=== PATIENT | female | born 1955 | race American Indian/Alaskan Native ===

== ENCOUNTER 2016-05-18 11:12 | Outpatient (CLI) | payer MEDICARE ==
--- NOTE | 2016-05-21 08:56 | Cat Scan Report ---
CT CHEST WITHOUT CONTRAST: HISTORY: Lung cancer screening. TECHNIQUE: Helical CT with sagittal and coronal reformatted images. FINDINGS: No comparison. There are mild to moderate centrilobular and paraseptal emphysematous changes. The lungs are well aerated. No evidence for infiltrate, pleural effusion or pneumothorax. There is no spiculated, suspicious pulmonary mass. There are however a few scattered small pulmonary nodules. An 8 mm well marginated nodule is identified in the lingula on image 108, series 2. A 6 mm well marginated nodule is identified in the lateral left lower lobe on image 148. There are 2 subpleural nodules in the right middle lobe measuring up to 6 mm on image 127. There appears to be moderate sized vessels associated with these right middle lobe nodules. I suspect these represent small pulmonary AVMs. Heart and mediastinal structures are within normal limits given no IV contrast was administered. No bulky mediastinal adenopathy or mass. The thoracic cage is grossly intact. No suspicious bony lesion or fracture. Chronic, ununited fracture of the left posterior seventh rib is noted. There are 3 borderline and enlarged left axillary lymph nodes measuring up to 1.7 x 1.2 cm. The radiology of these are unclear. There is no obvious breast mass on CT. IMPRESSION: Mild to moderate emphysematous changes. Approximately 4 tiny nodules are identified as outlined above. In my opinion these are benign in appearance. 2 of these appear to represent small pulmonary AVMs. These nodules are too small or inaccessible to biopsy under CT guidance. Followup CT chest with contrast is recommended in 3-6 months. Borderline to mildly enlarged left axillary lymph nodes of uncertain significance. These may be reactive in nature.
== END 2016-05-18 11:13 | disposition home or self-care (01) ==
LOC: CT 11:12
PROVIDERS: ATTEND Internal Medicine Critical Care Medicine
DX: Z12.2 Encounter for screening for malignant neoplasm of respiratory organs (principal); I10 Essential (primary) hypertension; E11.9 Type 2 diabetes mellitus without complications; J44.9 Chronic obstructive pulmonary disease, unspecified
CPT/HCPCS: 71250

== ENCOUNTER 2016-06-29 08:41 | Outpatient (CLI) | payer MEDICARE ==
--- NOTE | 2016-06-29 10:27 | Ultrasound Report ---
Bilateral mammogram and right breast ultrasound: Routine imaging as well as a straight lateral compression view right breast were obtained. Comparison is made to numerous prior exams dating back to 2013. On the current study is compared to the most recent prior studies in 2015 and 2016 there is an area of questionable changing asymmetry identified in the inferior right breast. Prior ultrasound in 2016 showed no significant findings. When however I compared the current examination to that in 2013 the areas of asymmetry appear generally the same. It would appear that the asymmetry is change depending on positioning of the breast. The left breast pattern is unchanged from multiple prior studies. Right breast ultrasound currently identifies hyperdense areas of tissue in the 8:00 and 5:00 locations which are not apparent on her prior ultrasound in 2016. The configuration of the areas appear to blend with other linear areas of increased density in the breast and most likely represent fibrosis. These are not shown on the recent ultrasound in 2016 however there current appearance is not suspicious for malignancy. CAD used. Impressions: 1. Generally stable breast pattern bilaterally. 2. Probably benign areas of hyper echogenicity in the right breast. Recommendation: Repeat right breast ultrasound in 6 months. BI-RADS CATEGORY: 3 = Probably benign ACR BI-RADS MAMMOGRAPHIC CODES: 0 = Needs additional imaging evaluation; 1 = Negative; 2 = Benign; 3 = Probably benign; 4 = Suspicious; 5 = Malignant; 6 = Known biopsy-proven malignancy COMMENT: 1. Dense breast tissue, i.e., adenosis, fibrocystic changes, etc., may obscure an underlying neoplasm. 2. Approximately 10% of cancers are not detected with mammography. 3. A negative mammography report should not delay biopsy if a clinically suspicious mass is present.
== END 2016-06-29 08:42 | disposition home or self-care (01) ==
LOC: MAMMO 08:41
PROVIDERS: ATTEND Obstetrics & Gynecology Gynecology
DX: R92.8 Other abnormal and inconclusive findings on diagnostic imaging of breast (principal)
CPT/HCPCS: 76642; G0204; 77066

== ENCOUNTER 2017-05-29 10:29 | Outpatient (CLI) | payer MEDICARE ==
--- NOTE | 2017-05-29 11:15 | XRay Report ---
ROUTINE CHEST, TWO VIEWS: HISTORY: Anterior chest wall pain. The trachea, heart, mediastinal contour, lung dunn and bony thorax are unremarkable. IMPRESSION: Unremarkable chest x-ray.
--- NOTE | 2017-05-29 11:50 | Cat Scan Report ---
CT CHEST WITHOUT CONTRAST: HISTORY: Pulmonary nodule. COMPARISON: 05/18/16. TECHNIQUE: Helical CT in 1.25mm intervals without IV contrast. Sagittal and coronal reformatted images. FINDINGS: Thyroid gland: Normal. Tracheobronchial tree: Normal. Esophagus: Normal. Heart: Normal size. Mild to moderate three-vessel coronary artery calcifications are noted. Pericardium: Normal. Mediastinum: Mild aortic calcifications. No mediastinal mass or adenopathy. Lung Bermudez: There are multiple tiny cysts in the central and peripheral lungs which predominate in the upper lung zones. On the previous exam, this was described as centrilobular and paraseptal emphysematous changes. This may actually represent some type of cystic lung disease. Mild lymphangiomyomatosis or tuberous sclerosis could also be considered. The cystic lesions range from a few millimeters in diameter to 2 cm in diameter. The cysts are well defined with a thin continuous wall. The previously described nodules in the lingula, left lower lobe and right middle lobe are unchanged in size and configuration. The 2 nodules in the right middle lobe remain consistent with small pulmonary AVMs. No new pulmonary nodule or mass is detected. Pleural Spaces: Normal. Musculoskeletal: Normal. IMPRESSION: No change since 05/18/16. Scattered bilateral pulmonary nodules are unchanged in size and number. Cystic lung disease versus emphysema. 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 Please see above correlate with the patient's clinical history.
== END 2017-05-29 10:30 | disposition home or self-care (01) ==
LOC: CT 10:29
PROVIDERS: ATTEND Internal Medicine Critical Care Medicine
DX: J98.4 Other disorders of lung (principal); I25.10 Atherosclerotic heart disease of native coronary artery without angina pectoris; I70.0 Atherosclerosis of aorta; R91.8 Other nonspecific abnormal finding of lung field; R07.89 Other chest pain; Z80.3 Family history of malignant neoplasm of breast
CPT/HCPCS: 71046; 71250

== ENCOUNTER 2017-07-23 08:27 | Outpatient (CLI) | payer MEDICARE ==
--- NOTE | 2017-07-24 12:52 | Mammography Report ---
BILATERAL DIGITAL SCREENING MAMMOGRAM with CAD: 07/23/17 08:27:00 CLINICAL: Routine screening.However, she did not return for a followup right breast ultrasound after her last mammogram. COMPARISON:06/29/16 FINDINGS: The breasts are mostly fatty with a few bilateral retroareolar fibroglandular densities.A previously described right outer asymmetric density is slightly larger on the cc view and correlates with an echogenic mass identified on the last ultrasound at 8 o'clock.No architectural distortion or suspicious calcifications. The left breast is negative with a stable fibroglandular pattern. IMPRESSION: Right asymmetry requiring further workup. BI-RADS CATEGORY: 0 -- Additional Imaging Evaluation Required RECOMMENDATION: Recall for right spot compression views and right breast ultrasound. ACR BI-RADS MAMMOGRAPHIC CODES: 0 = Needs additional imaging evaluation; 1 = Negative; 2 = Benign; 3 = Probably benign; 4 = Suspicious; 5 = Malignant; 6 = Known biopsy-proven malignancy COMMENT: 1. Dense breast tissue, i.e., adenosis, fibrocystic changes, etc., may obscure an underlying neoplasm. 2. Approximately 10% of cancers are not detected with mammography. 3. A negative mammography report should not delay biopsy if a clinically suspicious mass is present. COMMENT: Patient follow-up letters are generated via our [employer] application.
--- NOTE | 2017-07-24 16:47 | Magnetic Resonance Report ---
BILATERAL BREAST MRI WITHOUT AND WITH CONTRAST: 07/23/17 08:27:00 CLINICAL: High risk for breast cancer. Tyrer-Jonna score of 36% risk by age 86. COMPARISON:A same-day bilateral mammogram and bilateral mammograms and right breast ultrasound from 06/29/16 and 05/19/15. TECHNIQUE: Axial 1.0-mm T1 without, axial high resolution 2.0-mm T2 and axial 1.0-mm dynamic Vibrant high-resolution postcontrast T1 fat saturation sequences on a 1.5 [place] magnet. The examination was performed with an 8 channel dedicated [place] breast coil. Post processing with CAD and subtraction was performed on an [employer] workstation. 17.0 cc of Multihance was injected without incident for the contrast portion of the exam. Consent was obtained prior to the administration of the contrast. FINDINGS: Right: The breast is mostly fatty with minimal background parenchymal enhancement. Benign nonenhancing breast parenchyma correlates with mammographic asymmetries and echogenic masses on previous ultrasound exams. No mass or suspicious enhancement. No suspicious lymph nodes. Left: The breast is mostly fatty with minimal background parenchymal enhancement. No mass or suspicious enhancement. No suspicious lymph nodes. IMPRESSION: Negative study with no suspicious findings. Benign asymmetric breast parenchyma in the lower right breast on the same day mammogram. BI-RADS 2 - - Benign
== END 2017-07-23 08:28 | disposition home or self-care (01) ==
LOC: SPVIMAG 08:27
PROVIDERS: ATTEND Obstetrics & Gynecology Gynecology
DX: Z12.31 Encounter for screening mammogram for malignant neoplasm of breast (principal); N64.89 Other specified disorders of breast; J44.9 Chronic obstructive pulmonary disease, unspecified; R07.89 Other chest pain; F17.200 Nicotine dependence, unspecified, uncomplicated; Z80.3 Family history of malignant neoplasm of breast
CPT/HCPCS: 77067; A9577; C8908; 77059